=== PATIENT | female | born 1945 | race Caucasian/White ===

== ENCOUNTER 2022-03-16 10:33 | Outpatient (CLI) | payer MEDICARE | END 2022-03-16 10:34 | disposition home or self-care (01) | LOC: CSHULT 10:33 | PROVIDERS: ATTEND Internal Medicine Nephrology | DX: N17.9 Acute kidney failure, unspecified (principal); N13.30 Unspecified hydronephrosis; Z90.5 Acquired absence of kidney | CPT/HCPCS: 76770 ==

== ENCOUNTER 2022-05-11 10:10 | Outpatient (CLI) | payer MEDICARE | END 2022-05-11 10:11 | disposition home or self-care (01) | LOC: CSHCT 10:10 | PROVIDERS: ATTEND Internal Medicine Nephrology | DX: N13.30 Unspecified hydronephrosis (principal); K57.30 Diverticulosis of large intestine without perforation or abscess without bleeding; Z90.5 Acquired absence of kidney; Z90.710 Acquired absence of both cervix and uterus | CPT/HCPCS: 74176 ==

== ENCOUNTER 2022-06-11 19:24 | Observation (INO) | payer MEDICARE ==
[2022-06-11 20:11] LABS: #Basophils 0.1 10x3/uL (0.0-0.2); #Eosinphils 0.5 10x3/uL (0.0-0.5); #Neutrophils 6.2 10x3/uL (1.5-8.4); %Basophils 0.8 % (0.0-2.0); %Eosinophils 4.7 % (0.0-6.0); %Lymphocytes 20.2 % (18.0-47.0); %Monocytes 10.2 % (0.0-10.0); %Neutrophils 63.7 % (40.0-75.0); Mean Corpuscular HGB CONC 33.7 g/dL (32.0-36.0); Mean Corpuscular Volume 88.9 fl (81.6-98.3); Mean Platelet Volume 10.8 fl (7.4-10.4); Platelet Count 255 10x3/uL (150-450); RBC Distribution Width 13.8 % (11.5-14.5); Red Blood Cell (RBC) Count 4.34 10x6/uL (3.90-5.03); White Blood Cell (WBC) Count 9.7 10x3/uL (3.5-10.5)
[2022-06-11 20:33] LABS: ALT (SGPT) 31 U/L (8-55); Albumin 3.9 g/dL (3.4-4.8); Alkaline Phosphatase 76 U/L (40-110); Anion Gap 14 mmol/L (10-20); BUN (Urea Nitrogen) 29 mg/dL (9.8-20.1); Bilirubin, Total 0.3 mg/dL (0.2-1.2); Calc. Creatinine Clearance 0 mL/min (70-130); Calcium 9.5 mg/dL (7.8-10.44); Carbon Dioxide 23 mmol/L (23-31); Chloride 105 mmol/L (98-107); Estimated GFR 36; Globulin 3.3 g/dL (2.4-3.5); Glucose 105 mg/dL (83-110); Potassium 4.5 mmol/L (3.5-5.1); Protein, Total 7.2 g/dL (5.8-8.1); Sodium 137 mmol/L (136-145)
[2022-06-11 20:40] LABS: AST (SGOT) 67 U/L (5-34)
[2022-06-11] MEDS ORDERED: Ondansetron PF 4 MG/2 ML Vial IVP PRN (21:43)
[2022-06-11] MEDS ORDERED: Calcium Carbonate 500 MG ChewTAB PO PRN (21:43)
[2022-06-11] MEDS ORDERED: Acetaminophen 325 MG TAB PO PRN (21:43)
[2022-06-11] MEDS ORDERED: Guaifenesin DM 100-10/5 ML UDCUP PO PRN (21:43)
[2022-06-11] MEDS ORDERED: Zolpidem Tartrate 5 MG TAB PO PRN (21:43)
[2022-06-11] MEDS ORDERED: Famotidine 20 MG TAB PO SCH (22:00)
[2022-06-11] MEDS ORDERED: Magnesium Oxide 250 MG TAB PO SCH (22:00)
[2022-06-11 23:20] LABS: SARS-CoV-2 NAA Rapid Test Not Detected (NotDetected)
[2022-06-12] VITALS: BMI 36.5
[2022-06-12 04:31] LABS: ALT (SGPT) 25 U/L (8-55); AST (SGOT) 38 U/L (5-34); Albumin 3.7 g/dL (3.4-4.8); Alkaline Phosphatase 77 U/L (40-110); Anion Gap 13 mmol/L (10-20); BUN (Urea Nitrogen) 27 mg/dL (9.8-20.1); Bilirubin, Total 0.4 mg/dL (0.2-1.2); Calc. Creatinine Clearance 50 mL/min (70-130); Calcium 9.3 mg/dL (7.8-10.44); Carbon Dioxide 23 mmol/L (23-31); Chloride 108 mmol/L (98-107); Estimated GFR 43; Globulin 2.8 g/dL (2.4-3.5); Glucose 102 mg/dL (83-110); Magnesium 2.1 mg/dL (1.6-2.6); Potassium 4.2 mmol/L (3.5-5.1); Protein, Total 6.5 g/dL (5.8-8.1); Sodium 140 mmol/L (136-145)
[2022-06-12 05:33] LABS: Free T4 (Free Thyroxine) 1.23 ng/dL (0.70-1.48); Thyroid Stimulating Hormone 0.3697 uIU/mL (0.35-4.94)
[2022-06-12] MEDS ORDERED: Aspirin 81 mg Enteric Coated Tablet PO SCH (09:00)
[2022-06-12] MEDS ORDERED: Famotidine 20 MG TAB PO SCH (09:00)
[2022-06-12] MEDS ORDERED: Metoprolol Tartrate 25 MG TAB PO SCH (09:00)
[2022-06-12 12:01] VITALS: BP 131/67; TEMP 97.8
[2022-06-12] MEDS ORDERED: Rosuvastatin 10 MG TAB PO SCH (21:00)
[2022-06-12] MEDS ORDERED: Magnesium Oxide 250 MG TAB PO SCH (21:00)
[2022-06-12] MEDS ORDERED: Enoxaparin Sodium 40 MG/0.4 ML SYRINGE SC SCH (21:00)
== END 2022-06-12 13:11 | disposition home or self-care (01) ==
LOC: CSHERS 19:24 → INTOOBSV 23:42 → CSHIMCU 23:42
PROVIDERS: ADMIT Student in an Organized Health Care Education/Training Program; ATTEND Hospitalist
DX: R07.89 Other chest pain (principal); R06.02 Shortness of breath; I49.3 Ventricular premature depolarization; I34.0 Nonrheumatic mitral (valve) insufficiency; I12.9 Hypertensive chronic kidney disease with stage 1 through stage 4 chronic kidney disease, or unspecified chronic kidney disease; N18.30 Chronic kidney disease, stage 3 unspecified; I65.22 Occlusion and stenosis of left carotid artery; E78.2 Mixed hyperlipidemia; E03.9 Hypothyroidism, unspecified; Q63.9 Congenital malformation of kidney, unspecified; Z87.442 Personal history of urinary calculi; Z20.822 Contact with and (suspected) exposure to COVID-19; Z79.82 Long term (current) use of aspirin; Z79.899 Other long term (current) drug therapy; Z88.8 Allergy status to other drugs, medicaments and biological substances; Z90.710 Acquired absence of both cervix and uterus; Z98.890 Other specified postprocedural states
CPT/HCPCS: 71045; 80053 ×2; 83735; 84439; 84443; 84484 ×3; 85025; 87804 ×2; 93005; 93306; 99218; 99285; G0378; U0002; 36415

== ENCOUNTER 2022-06-30 15:54 | Inpatient (IN) | payer MEDICARE, OTHER ==
[2022-06-30] MEDS ORDERED: Calcium Carbonate 500 MG ChewTAB PO PRN (15:57)
[2022-06-30] MEDS ORDERED: Loperamide HCl 2 MG CAP PO PRN (15:57)
[2022-06-30] MEDS ORDERED: Senokot S 8.6-50 MG TAB PO PRN (15:57)
[2022-06-30] MEDS ORDERED: Zolpidem Tartrate 5 MG TAB PO PRN (15:57)
[2022-06-30 16:52] LABS: #Basophils 0.1 10x3/uL (0.0-0.2); #Eosinphils 0.2 10x3/uL (0.0-0.5); #Monocytes 0.7 10x3/uL (0.0-1.1); #Neutrophils 8.1 10x3/uL (1.5-8.4); %Basophils 0.7 % (0.0-2.0); %Eosinophils 1.5 % (0.0-6.0); %Lymphocytes 13.4 % (18.0-47.0); %Monocytes 6.2 % (0.0-10.0); %Neutrophils 77.9 % (40.0-75.0); Mean Corpuscular Hemoglobin 29.6 pg (27.0-33.0); Mean Corpuscular Volume 89.9 fl (81.6-98.3); Mean Platelet Volume 10.5 fl (7.4-10.4); Platelet Count 358 10x3/uL (150-450); RBC Distribution Width 12.8 % (11.5-14.5); Red Blood Cell (RBC) Count 4.05 10x6/uL (3.90-5.03); White Blood Cell (WBC) Count 10.4 10x3/uL (3.5-10.5)
[2022-06-30 17:09] LABS: ALT (SGPT) 8 U/L (8-55); AST (SGOT) 19 U/L (5-34); Albumin 4.2 g/dL (3.4-4.8); Alkaline Phosphatase 88 U/L (40-110); Anion Gap 15 mmol/L (10-20); BUN (Urea Nitrogen) 23 mg/dL (9.8-20.1); Bilirubin, Total 0.5 mg/dL (0.2-1.2); Calc. Creatinine Clearance 0 mL/min (70-130); Calcium 9.6 mg/dL (7.8-10.44); Carbon Dioxide 22 mmol/L (23-31); Chloride 102 mmol/L (98-107); Estimated GFR 32; Globulin 3.3 g/dL (2.4-3.5); Glucose 160 mg/dL (83-110); Potassium 4.3 mmol/L (3.5-5.1); Protein, Total 7.5 g/dL (5.8-8.1); Sodium 135 mmol/L (136-145)
[2022-06-30 18:04] VITALS: BMI 34.7
[2022-06-30] MEDS: Diltiazem 125 MG in Sodium Chloride 0.9% 100 ML IVPB SCH (19:58)
[2022-06-30] MEDS: Apixaban 5 MG TAB PO SCH (21:43)
[2022-06-30] MEDS: Rosuvastatin 10 MG TAB PO SCH (21:43)
[2022-06-30] MEDS: Acetaminophen 325 MG TAB PO PRN (21:45)
[2022-07-01 02:03] LABS: SARS-CoV-2 NAA Rapid Test Not Detected (NotDetected)
[2022-07-01 05:00] LABS: #Basophils 0.1 10x3/uL (0.0-0.2); #Eosinphils 0.3 10x3/uL (0.0-0.5); #Monocytes 0.8 10x3/uL (0.0-1.1); #Neutrophils 4.9 10x3/uL (1.5-8.4); %Basophils 1.2 % (0.0-2.0); %Eosinophils 4.3 % (0.0-6.0); %Monocytes 9.8 % (0.0-10.0); %Neutrophils 63.3 % (40.0-75.0); Hemoglobin 10.8 g/dL (12.0-15.5); Mean Corpuscular HGB CONC 33.1 g/dL (32.0-36.0); Mean Corpuscular Hemoglobin 29.8 pg (27.0-33.0); Mean Corpuscular Volume 90.1 fl (81.6-98.3); Mean Platelet Volume 10.6 fl (7.4-10.4); Platelet Count 291 10x3/uL (150-450); RBC Distribution Width 12.9 % (11.5-14.5); Red Blood Cell (RBC) Count 3.62 10x6/uL (3.90-5.03); White Blood Cell (WBC) Count 7.8 10x3/uL (3.5-10.5)
[2022-07-01 05:23] LABS: Anion Gap 14 mmol/L (10-20); BUN (Urea Nitrogen) 24 mg/dL (9.8-20.1); Calc. Creatinine Clearance 44 mL/min (70-130); Calcium 8.8 mg/dL (7.8-10.44); Carbon Dioxide 24 mmol/L (23-31); Chloride 104 mmol/L (98-107); Estimated GFR 39; Glucose 104 mg/dL (83-110); Sodium 138 mmol/L (136-145)
[2022-07-01] MEDS: Apixaban 5 MG TAB PO SCH (07:17)
[2022-07-01] MEDS: Levothyroxine Sodium 100 MCG TAB PO SCH (07:17)
[2022-07-01] MEDS: Liothyronine Sodium 5 MCG TAB PO SCH (07:18)
[2022-07-01] MEDS: Diltiazem 125 MG in Sodium Chloride 0.9% 100 ML IVPB SCH (07:18)
[2022-07-01] MEDS: Lisinopril 10 MG TAB PO SCH (08:47)
[2022-07-01] MEDS ORDERED: Liothyronine Sodium 5 MCG TAB PO SCH (09:00)
[2022-07-01] MEDS ORDERED: PROPOFOL 20 ML ONE (10:00)
[2022-07-01] MEDS: Rosuvastatin 10 MG TAB PO SCH (21:01)
[2022-07-01] MEDS: Amiodarone 200 MG TAB PO SCH (21:01)
[2022-07-01] MEDS: Acetaminophen 325 MG TAB PO PRN (21:01)
[2022-07-02 04:34] LABS: PTT 29.8 sec (22.0-33.0); Prothrombin Time 10.9 sec (9.5-12.1)
[2022-07-02 04:37] LABS: ALT (SGPT) Less than 6 U/L (8-55); AST (SGOT) 11 U/L (5-34); Albumin 3.5 g/dL (3.4-4.8); Alkaline Phosphatase 77 U/L (40-110); Anion Gap 12 mmol/L (10-20); BUN (Urea Nitrogen) 22 mg/dL (9.8-20.1); Bilirubin, Total 0.3 mg/dL (0.2-1.2); Calc. Creatinine Clearance 47 mL/min (70-130); Calcium 8.9 mg/dL (7.8-10.44); Carbon Dioxide 24 mmol/L (23-31); Chloride 107 mmol/L (98-107); Estimated GFR 42; Globulin 2.7 g/dL (2.4-3.5); Glucose 104 mg/dL (83-110); Potassium 3.8 mmol/L (3.5-5.1); Protein, Total 6.2 g/dL (5.8-8.1); Sodium 139 mmol/L (136-145)
[2022-07-02 04:39] LABS: #Basophils 0.1 10x3/uL (0.0-0.2); #Eosinphils 0.4 10x3/uL (0.0-0.5); #Monocytes 0.6 10x3/uL (0.0-1.1); %Basophils 0.8 % (0.0-2.0); %Eosinophils 4.8 % (0.0-6.0); %Lymphocytes 21.5 % (18.0-47.0); %Monocytes 7.6 % (0.0-10.0); %Neutrophils 64.9 % (40.0-75.0); Hemoglobin 10.5 g/dL (12.0-15.5); Mean Corpuscular HGB CONC 33.1 g/dL (32.0-36.0); Mean Corpuscular Hemoglobin 30.1 pg (27.0-33.0); Mean Corpuscular Volume 90.8 fl (81.6-98.3); Mean Platelet Volume 10.5 fl (7.4-10.4); Platelet Count 285 10x3/uL (150-450); RBC Distribution Width 13.1 % (11.5-14.5); Red Blood Cell (RBC) Count 3.49 10x6/uL (3.90-5.03); White Blood Cell (WBC) Count 7.8 10x3/uL (3.5-10.5)
[2022-07-02] MEDS: Levothyroxine Sodium 100 MCG TAB PO SCH (05:42)
[2022-07-02] MEDS: Lisinopril 10 MG TAB PO SCH (09:08)
[2022-07-02] MEDS: Amiodarone 200 MG TAB PO SCH ×2 (09:08→21:35)
[2022-07-02] MEDS: Liothyronine Sodium 5 MCG TAB PO SCH (09:08)
[2022-07-02] MEDS: Rosuvastatin 10 MG TAB PO SCH (21:35)
[2022-07-02] MEDS: Acetaminophen 325 MG TAB PO PRN (21:37)
[2022-07-03 05:33] LABS: Anion Gap 12 mmol/L (10-20); BUN (Urea Nitrogen) 20 mg/dL (9.8-20.1); Calc. Creatinine Clearance 51 mL/min (70-130); Calcium 9.1 mg/dL (7.8-10.44); Carbon Dioxide 24 mmol/L (23-31); Chloride 106 mmol/L (98-107); Estimated GFR 46; Glucose 98 mg/dL (83-110); Potassium 4.2 mmol/L (3.5-5.1); Sodium 138 mmol/L (136-145)
[2022-07-03 05:36] LABS: Hemoglobin 10.3 g/dL (12.0-15.5); Mean Corpuscular HGB CONC 32.5 g/dL (32.0-36.0); Mean Corpuscular Hemoglobin 29.6 pg (27.0-33.0); Mean Corpuscular Volume 91.1 fl (81.6-98.3); Mean Platelet Volume 10.5 fl (7.4-10.4); Platelet Count 279 10x3/uL (150-450); RBC Distribution Width 13.2 % (11.5-14.5); Red Blood Cell (RBC) Count 3.48 10x6/uL (3.90-5.03); White Blood Cell (WBC) Count 8.4 10x3/uL (3.5-10.5)
[2022-07-03] MEDS: Levothyroxine Sodium 100 MCG TAB PO SCH (05:52)
[2022-07-03] MEDS: Liothyronine Sodium 5 MCG TAB PO SCH (07:59)
[2022-07-03] MEDS: Amiodarone 200 MG TAB PO SCH ×2 (07:59→20:42)
[2022-07-03] MEDS: Lisinopril 10 MG TAB PO SCH (07:59)
[2022-07-03] MEDS ORDERED: Communication Order-Pharmacy FS SCH (09:30)
[2022-07-03] MEDS ORDERED: FLU VACC QS2022-23(65YR UP)/PF 240 MCG/0.7 ML SYRINGE IM ONE (18:15)
[2022-07-03] MEDS: Rosuvastatin 10 MG TAB PO SCH (20:41)
[2022-07-04] MEDS: Lisinopril 10 MG TAB PO SCH (05:55)
[2022-07-04] MEDS: Liothyronine Sodium 5 MCG TAB PO SCH (05:55)
[2022-07-04] MEDS: Levothyroxine Sodium 100 MCG TAB PO SCH (05:55)
[2022-07-04] MEDS: Amiodarone 200 MG TAB PO SCH (05:56)
[2022-07-04] MEDS ORDERED: Sodium Chloride 0.9% 1,000 ML IV SCH ×2 (06:00→07:45)
[2022-07-04] MEDS ORDERED: Nitroglycerin 50 MG/250 ML BOT 0 ML ONE (06:13)
[2022-07-04] MEDS ORDERED: Heparin 10,000 UNITS/ 10 ML VIAL ONE ×2 (06:13→06:20)
[2022-07-04] MEDS ORDERED: Bivalirudin 250 MG VIAL ONE (06:14)
[2022-07-04] MEDS ORDERED: Adenosine 6 MG/2 ML VIAL ONE (06:14)
[2022-07-04] MEDS ORDERED: Verapamil 5 MG/2 ML VIAL ONE ×2 (06:14→06:20)
[2022-07-04 06:15] LABS: Hemoglobin 10.3 g/dL (12.0-15.5); Mean Corpuscular Hemoglobin 29.7 pg (27.0-33.0); Mean Corpuscular Volume 89.9 fl (81.6-98.3); Mean Platelet Volume 10.7 fl (7.4-10.4); Platelet Count 272 10x3/uL (150-450); Red Blood Cell (RBC) Count 3.47 10x6/uL (3.90-5.03); White Blood Cell (WBC) Count 8.8 10x3/uL (3.5-10.5)
[2022-07-04] MEDS ORDERED: Lidocaine 1% 20 ML MDV ONE (06:16)
[2022-07-04] MEDS ORDERED: Lidocaine 1% PF 5 ML VIAL ONE (06:16)
[2022-07-04] MEDS ORDERED: Nitroglycerin 50 MG/250 ML BOT 250 ML ONE ×2 (06:19→06:20)
[2022-07-04 06:40] LABS: Anion Gap 12 mmol/L (10-20); BUN (Urea Nitrogen) 15 mg/dL (9.8-20.1); Calc. Creatinine Clearance 54 mL/min (70-130); Carbon Dioxide 24 mmol/L (23-31); Chloride 107 mmol/L (98-107); Estimated GFR 50; Glucose 89 mg/dL (83-110); Potassium 4.2 mmol/L (3.5-5.1); Sodium 139 mmol/L (136-145)
[2022-07-04] MEDS ORDERED: CEFAZOLIN 1 GM VIAL ONE (06:59)
[2022-07-04] MEDS ORDERED: Midazolam HCl 2 mg/2 ml Vial ONE (07:04)
[2022-07-04] MEDS ORDERED: Fentanyl 100 MCG/2 ML VIAL ONE (07:04)
[2022-07-04] MEDS ORDERED: Nitroglycerin 0.4 MG TAB (25 Tab Bottle) SL PRN (07:33)
[2022-07-04] MEDS ORDERED: Acetaminophen/Codeine 30-300mg Tablet PO PRN ×2 (07:33)
[2022-07-04] MEDS ORDERED: Sodium Chloride 0.9% 200 ML IV PRN (07:33)
[2022-07-04] MEDS: Acetaminophen 325 MG TAB PO PRN (09:24)
[2022-07-04] MEDS ORDERED: Iopamidol 300 61% 100 ML VIAL FS ONE (12:27)
[2022-07-04 17:00] VITALS: BP 114/52; TEMP 98.4
[2022-07-04] MEDS ORDERED: Apixaban 5 MG TAB PO SCH (21:00)
== END 2022-07-04 17:45 | disposition home or self-care (01) | DRG 287 ==
LOC: CSHTELE 15:54 → OBSVTOIN 15:57
PROVIDERS: ADMIT Specialist; ATTEND Specialist
PROC: 5A2204Z Restoration of Cardiac Rhythm, Single (ICD-10-PCS; 2022-07-01)
PROC: B246ZZ4 Ultrasonography of Right and Left Heart, Transesophageal (ICD-10-PCS; 2022-07-01)
PROC: 4A023N7 Measurement of Cardiac Sampling and Pressure, Left Heart, Percutaneous Approach (ICD-10-PCS; principal; 2022-07-04)
PROC: B2111ZZ Fluoroscopy of Multiple Coronary Arteries using Low Osmolar Contrast (ICD-10-PCS; 2022-07-04)
PROC: B2151ZZ Fluoroscopy of Left Heart using Low Osmolar Contrast (ICD-10-PCS; 2022-07-04)
DX: I48.0 Paroxysmal atrial fibrillation (principal); I31.39 Other pericardial effusion (noninflammatory); I10 Essential (primary) hypertension; E78.5 Hyperlipidemia, unspecified; E03.9 Hypothyroidism, unspecified; I34.0 Nonrheumatic mitral (valve) insufficiency; E66.01 Morbid (severe) obesity due to excess calories; Z20.822 Contact with and (suspected) exposure to COVID-19; Z90.710 Acquired absence of both cervix and uterus; Z90.49 Acquired absence of other specified parts of digestive tract; Z88.8 Allergy status to other drugs, medicaments and biological substances; Z79.899 Other long term (current) drug therapy; Z68.34 Body mass index [BMI] 34.0-34.9, adult
CPT/HCPCS: 80048; 80053; 84443; 85025; 85027; 85610; 85730; 92960; 93005; 93010; 93312; 93458; 99152; C1769; C1894; J0153; J0583; J0690; J1644; J2250; J2704; J3010; J3490; J7050; Q9967; U0002; U0003; U0005